=== PATIENT | female | born 1995 | race Caucasian/White ===

== ENCOUNTER 2017-01-19 06:23 | Inpatient (IN) | payer OTHER ==
[~2017-01-19] VITALS: Ht 165.1 cm; Wt 112.3 kg
[~2017-01-19 06:23] MED LIST: FERR325T51 PO; MTR600X PO; PRENTAB26 PO
[2017-01-20] MEDS ORDERED: OXYTOCIN 30 UNITS/500ML NSS IV ONE (08:32)
[2017-01-20] MEDS ORDERED: LACTATED RINGER'S 1000ML 1,000 ML IV PRN (08:34)
[2017-01-20] MEDS ORDERED: LACTATED RINGER'S 1000ML 1,000 ML IV SCH ×2 (08:34→09:18)
[2017-01-20] MEDS ORDERED: ERYTHROMYCIN OP OINT 1 GM PKT ONE (09:01)
[2017-01-20 09:03] LABS: HEMATOCRIT 30.7 % (37-47); MEAN CELL VOLUME 71.9 fL (80-100); MEAN CORPUSCULAR HEMOGLOBIN 21.1 pg (25-34); MEAN PLATELET VOLUME 9.9 fL (7.4-10.4); PLATELET COUNT 208 K/uL (130-400); RED BLOOD COUNT 4.27 M/uL (4.2-5.4); WHITE BLOOD COUNT 10.28 K/uL (4.8-10.8)
[2017-01-20 09:04] LABS: MEAN CORPUSCULAR HGB CONC 29.3 g/dl (32-36)
[2017-01-20] MEDS ORDERED: OXYTOCIN 30 UNITS/500ML NSS IV PRN (09:30)
[2017-01-20] MEDS ORDERED: DIPHTHERIA/TETANUS/PERTUSSIS 0.5 ML SYR/VIAL IM. ONE (09:30)
[2017-01-20] MEDS ORDERED: HYDROCORTISONE ACETATE 25 MG SUPP PR PRN (09:30)
[2017-01-20] MEDS ORDERED: OXYCODONE/ACETAMINOPHEN 5-325 TAB PO PRN (09:30)
[2017-01-20] MEDS ORDERED: ACETAMINOPHEN 325 MG TAB PO PRN (09:30)
[2017-01-20] MEDS ORDERED: LANOLIN OINT EXT PRN ×2 (09:30)
[2017-01-20] MEDS ORDERED: SUPERCREAM 0.870 % 15GM JAR EXT PRN (09:30)
[2017-01-20] MEDS ORDERED: BENZOCAINE 20% AER SPR 82.5 GM CAN EXT PRN (09:30)
[2017-01-20] MEDS ORDERED: MEASLES, MUMPS & RUBELLA VIRUS VIAL SQ. ONE (09:30)
[2017-01-20 11:04] VITALS: Ht 165.1 cm; Wt 112.3 kg
--- NOTE | 2017-01-20 11:04 | DELIVERY SUMMARY ---
DATE OF OPERATION: 01/20/2017 TIME OF DELIVERY OF BABY: 08:43 a.m. TIME OF DELIVERY OF PLACENTA: 09:07 a.m. DETAILS OF DELIVERY: The patient is a 21-year-old G2, P1-0-0-1, at 40 weeks and 1 day of gestation, who presented to labor and delivery in active labor. Her has been complicated by 1) History of preeclampsia on prior , no signs of preeclampsia during this 2) History of ADHD The patient denied any medical problems or surgeries. She denies any history of STDs including chlamydia, gonorrhea, or herpes and This is her second . She had delivered full-term spontaneous vaginal in July 2015 by myself. GBS culture was negative. Upon presenting to L&D her cervix was 8 cm dilated, 90% effaced and head at 0 station with tight bulging membranes. FHR was 150's. She was uncomfortable. She desired artificial rupture of membranes and to facilitate delivery. She declined epidural for pain. Artificial rupture of membranes was done and it was clear fluid. Then she quickly progressed and desired to push. She pushed with 2 contractions and delivered the head without difficulty. Shoulders were delivered with minimal traction. The infant was handed off to the mother, where mouth and nose were suctioned. Cord was clamped and cut at 1 minute and then cord blood was obtained. It was a 3-vessel cord. The vagina and perineum were checked for lacerations. There was second-degree perineal laceration at the posterior fourchette. It was confirmed with rectal exam. Excellent sphincter tone was noted. Gloves were changed. The laceration was repaired with 2-0 Vicryl in a running locked fashion bringing the perineal body muscles together and bulbocavernosus muscles together and skin in subcuticular fashion. The rectal exam was done and again, excellent sphincter tone was noted and no sutures palpated. The Gloves were changed. Placenta was found to be in the patient's vagina, delivered spontaneously as intact and complete. Uterus was explored and found to be empty. Lower segment was cleared off all clots and debris. EBL was 200. Mom and baby tolerated the procedure well. Baby was a viable male . Apgars 9/9. Weight is 4140 gr. No complications happened and I was present during the whole procedure. I attest to the content of the Intraoperative Record and any orders documented therein. Any exceptions are noted below. [facility]
[2017-01-20 11:55] VITALS: BP 131/78; PULSE 100; TEMP 37
[2017-01-20] MEDS: IBUPROFEN 600 MG TAB PO PRN (14:56)
[2017-01-20 16:07] VITALS: BP 138/80; PULSE 93; TEMP 36.8
[2017-01-20] MEDS: FERROUS SULFATE 325 MG TAB PO SCH (19:33)
[2017-01-20] MEDS: DOCUSATE SODIUM 100 MG CAP PO SCH (19:33)
[2017-01-20] MEDS: MAGNESIUM HYDROXIDE SUSP 30 ML UDC PO SCH (19:33)
[2017-01-20 20:00] VITALS: BP 136/79; PULSE 96; TEMP 36.8
[2017-01-20 23:25] VITALS: BP 131/70; PULSE 91; TEMP 37; O2SAT 97
[2017-01-21] MEDS: IBUPROFEN 600 MG TAB PO PRN ×2 (02:23→10:25)
[2017-01-21 03:25] VITALS: BP 129/66; PULSE 93; TEMP 36.8; O2SAT 97
[2017-01-21] MEDS: FERROUS SULFATE 325 MG TAB PO SCH (07:30)
[2017-01-21] MEDS: DOCUSATE SODIUM 100 MG CAP PO SCH (07:30)
[2017-01-21] MEDS ORDERED: MTR600X PO (07:57)
--- NOTE | 2017-01-21 07:59 | Discharge Instructions ---
Discharge Instructions Date of Service Jan 21, 2017. Admission Reason for Admission: LABOR Discharge Discharge Diagnosis / Problem: term delivered Discharge Goals Goal(s): Routine recovery after delivery Activity Recommendations Activity Limitations: as noted below Lifting Limitations: no more than 10 pounds Exercise/Sports Limitations: gradually increase as tolerated May Resume Sexual Activity: after follow-up appointment Shower/Bathe: no limitations Driving or Machine Use: resume 3 days after discharge . Instructions / Follow-Up Instructions / Follow-Up ACTIVITY RECOMMENDATIONS: * Gradual return to full activity over the next 2-3 weeks. * No lifting - nothing heavier than baby over the next 2-3 weeks. * Do not engage in vigorous exercise, sexual activity or sports until cleared by your physician. * Do not drive or operate any motorized equipment until cleared by your physician. * You may shower/bathe daily. BREAST CARE: If you are not breast feeding: * Wear a supportive bra 24 hours a day for one to two weeks. * Avoid stimulating your breasts and nipples as much as possible during the first few weeks after delivery. * When taking a shower, have the warm water hit your back, not breasts. * When your breasts feel full, apply ice packs. Usually three to four times a day helps ease the discomfort. * Take a mild pain medication (Tylenol/Motrin) when you are uncomfortable. If breast feeding: * Use breast milk to lubricate nipples. Lansinoh cream may be used for sore nipples. You do not need to remove cream prior to breast feeding. If using a different brand of cream, check the label for directions regarding removal of cream prior to nursing. * Wear a supportive bra. * If having problems with breasts or breast feeding, call a senior consumer insights consultant or your health care provider. EPISIOTOMY CARE: After delivery, if you have an episiotomy (stitches), the following steps will ease discomfort and aid healing. * For the first 24 hours after delivery, place ice packs next to your episiotomy to help reduce swelling. * After the first 24 hour-period, sitz baths, either portable or in the tub, are suggested. A shower with a shower arm sprayed over the episiotomy may be comforting. * Trudy care should be done after each voiding and bowel movement. Squirt warm water from a plastic bottle over the perineum (region of the body between the anus and urinary opening) and pat dry. * Use Dermoplast to ease discomfort. Shake container. Ensign directly over the episiotomy. * Place a Tucks on a clean sanitary pad next to your episiotomy. OVER THE COUNTER MEDICATION: * For discomfort or pain, you may use Acetaminophen (Tylenol), Ibuprofen (Advil ), or Naproxen (Aleve) following the package directions. * For constipation you may use Colace following the package directions. SPECIAL CARE INSTRUCTIONS: When you are discharged from the hospital, it is important for you to follow the instructions listed below: * During the first week at home, you should be able to care for yourself and your baby. In addition, the usual light household activities are encouraged. * Limit your activities to the way you feel. Do not try to clean the house or move furniture. Be sensible. * If you actively engage in sports and have done so up until the time of your delivery, you may resume these activities as soon as you feel able. This may take up to one month or even longer. Use good judgment. * Continue to take your vitamins for at least six weeks after the of your baby. * Your diet need not be limited unless you were on a special diet before your delivery. Breast-feeding mothers need around 2500 calories per day and at least 64-80 ounces of fluid per day (8 to 10 glasses). * You should eat foods from the four major food groups. Crash diets or fad diets are to be avoided. Eating lean meats, fresh fruits and vegetables, low-fat dairy products, high fiber foods and a regular exercise program, will help you get back to your pre- weight without putting your health at risk. * Constipation is sometimes a problem after delivery. Take a mild laxative as needed. If breast feeding, Milk of Magnesia is acceptable to use. You may use a suppository or Fleets enema if no episiotomy. * A daily shower or tub bath is suggested. Be sure to thoroughly and gently dry the perineum. * A bloody vaginal discharge will usually continue until around four weeks post . A small amount of bleeding may continue for as long as six weeks. Vaginal discharge changes from the bright red bleeding after delivery to pink then brownish and finally yellowish-pink before becoming white and disappearing. * Bleeding may increase with activity. Your first period may come in 4-8 weeks. If you are breast feeding, your period may be delayed even longer. * [place] (sex) can begin whenever both you and your partner feel comfortable and do not have any form of genital infection. It is recommended that you wait until after your return appointment and discuss with your physician. If you have questions, please talk to your health care practitioner. A condom should be used to prevent infection and . * Foreplay, gentle intercourse and lubrication is very important the first several times to prevent pain. A water-based lubricant such as K-Y jelly or Astroglide may be used. * Tampons may be used six weeks after delivery. * Douching should be avoided for 6 weeks after delivery. * If you have RH negative blood and your baby is RH positive, you will receive RHOGAM by injection prior to discharge. The nurse will give you a card to keep with you that has the date and place that you received RHOGAM after delivery. * During your care, you had a Rubella screen done to check for the presence of rubella antibodies in your blood. If your test was negative, you will receive a Rubella vaccine prior to discharge. This vaccine may cause a fever, soreness at the injection site and flu-like symptoms. If these symptoms persist, notify your health care practitioner. is not advised for three months after a Rubella vaccine. There is a higher chance of having a baby with defects if conceived within three months of getting the vaccine. * If you were discharged 24 hours from delivery or before 48 hours: Visiting nurses will come to your home 48 hours after discharge to assess you and your baby. The visiting nurse will meet with you while you are in the hospital to arrange a time and get directions to your home. * Verbalizes understanding of car seat law as reviewed with patient nursing. * Car Seat hand-out given and reviewed with patient by nursing. * Shaken baby information reviewed with patient by nursing. Call you doctor if: * Heavy bleeding (saturating several pads an hour) or passing clots the size of your fist. * A fever >101 degrees F (38.3 degrees C) on two occasions four hours apart and/or chills. * Unusual pain in the pelvic or vaginal areas. * "Baby Blues" lasting longer than two weeks. If you have any questions or concerns, call your health care practitioner at . FOLLOW-UP VISIT: * Please call the office at to schedule a 6 week examination. It is important you keep this appointment. * It is important for you to make arrangements for either yearly or twice yearly check-ups thereafter. Current Hospital Diet Patient's current hospital diet: Regular OB Diet Discharge Diet Recommended Diet: Regular OB Diet Fluid Restriction: None Pending Studies Studies pending at discharge: no Medical Emergencies . Who to Call and When: Medical Emergencies: If at any time you feel your situation is an emergency, please call 911 immediately. . Non-Emergent Contact Non-Emergency issues call your: Primary Care Provider . . "Provider Documentation" section prepared by Brian Roque. . VTE Core Measure Inpt VTE Proph given/why not?: Treatment not indicated
[2017-01-21] MEDS ORDERED: PRENATAL VITAMIN TAB PO SCH (08:00)
--- NOTE | 2017-01-21 08:01 | OB/GYN Progress Note ---
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 Subjective conversation w/ patient, physical exam Ambulation: ambulating normally Voiding: no voiding problems Passing Gas: Yes Diet Tolerance: Regular Diet Lochia: Small Feeding Type: Bottle Feeding Objective Vital Signs Date Time Temp Pulse Resp B/P (MAP) Pulse Ox O2 Delivery O2 Flow Rate FiO2 01/21/17 03:25 36.8 93 18 129/66 (87) 97 Room Air 01/20/17 23:25 97 Room Air 01/20/17 23:25 37.0 91 18 131/70 (90) 97 Room Air 01/20/17 20:00 36.8 96 18 136/79 (98) Room Air 01/20/17 16:07 36.8 93 18 138/80 (99) Room Air 01/20/17 16:07 Room Air 01/20/17 11:55 37.0 100 18 131/78 (95) Room Air 01/20/17 11:55 Room Air Physical Exam General Appearance: WELL-APPEARING, NO APPARENT DISTRESS Abdomen: non tender, soft Fundus: Firm Extremities: non-tender, normal inspection, no pedal edema Laboratory Results Last 24 Hours Test 01/20/17 08:56 01/21/17 07:23 White Blood Count 10.28 K/uL Red Blood Count 4.27 M/uL Hemoglobin 9.0 g/dL Hematocrit 30.7 % Mean Corpuscular Volume 71.9 fL Mean Corpuscular Hemoglobin 21.1 pg Mean Corpuscular Hemoglobin Concent 29.3 g/dl RDW Standard Deviation 41.0 fL RDW Coefficient of Variation 15.6 % Platelet Count 208 K/uL Mean Platelet Volume 9.9 fL Assessment and Plan Post- Day Number: 1 Continue Routine Care: discharged
[2017-01-21 08:02] VITALS: BP 132/76; PULSE 81; TEMP 36.5
[2017-01-21] MEDS: MAGNESIUM HYDROXIDE SUSP 30 ML UDC PO SCH (10:20)
[2017-01-21 14:08] VITALS: BP_DIAS 76; PULSE 81; TEMP 36.5
[2017-01-21] MEDS ORDERED: BISACODYL 5 MG TABEC PO SCH (20:00)
[2017-01-22] MEDS ORDERED: BISACODYL 10 MG SUPP PR PRN (07:00)
== END 2017-01-21 14:49 | disposition home or self-care (01) | DRG 775 ==
LOC: C.LD 01-20 08:28 → C.OBG 01-20 11:40
PROVIDERS: ADMIT Obstetrics & Gynecology; ATTEND Obstetrics & Gynecology
PROC: 10E0XZZ Delivery of Products of Conception, External Approach (ICD-10-PCS; principal; 2017-01-20)
PROC: 0KQM0ZZ Repair Perineum Muscle, Open Approach (ICD-10-PCS; principal; 2017-01-20)
DX: O70.1 Second degree perineal laceration during delivery (principal); O09.893 Supervision of other high risk pregnancies, third trimester; Z37.0 Single live birth; Z3A.40 40 weeks gestation of pregnancy

== ENCOUNTER 2022-06-04 20:21 | Inpatient (IN) ==
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
[2022-06-04 21:33] LABS: Basophils # (auto) 0.03 K/uL (0-0.2); Basophils % (auto) 0.4 %; Eosinophils # (auto) 0.06 K/uL (0-0.50); Eosinophils % (auto) 0.9 %; Hematocrit (blood only) 42.8 % (37.0-47.0); Hemoglobin 14.2 g/dl (12.0-16.0); Immature Granulocytes # (auto) 0.02 K/uL (0.01-0.20); Immature Granulocytes % (auto) 0.3 %; Lymphocytes # (auto) 1.46 K/uL (1.2-3.4); Lymphocytes % (auto) 21.7 %; Mean Corpuscular Hemoglobin 27.4 pg (25.0-34.0); Mean Corpuscular Hgb Conc 33.2 g/dL (32.0-36.0); Mean Corpuscular Volume 82.5 fL (80.0-100.0); Mean Platelet Volume 9.4 fL (9.4-12.4); Monocytes # (auto) 0.41 K/uL (0.11-0.59); Monocytes % (auto) 6.1 %; Neutrophils # (auto) 4.75 K/uL (1.40-6.50); Neutrophils % (auto) 70.6 %; Platelet Count 327 K/uL (130-400); RDW Coefficient of Variation 12.7 % (11.5-14.5); RDW Standard Deviation 37.9 fL (36.4-46.3); Red Blood Count 5.19 M/uL (4.20-5.40); White Blood Count 6.73 K/ul (4.8-10.8)
[2022-06-04 21:34] LABS: Pregnancy Test, Urine Negative (Negative)
[2022-06-04 21:39] LABS: Appearance Urine Turbid (Clear); Bacteria Urine Automated 2+ (Negative); Bilirubin Urine Negative (Negative); Blood Urine 2+ (Negative); Color Urine Yellow; Epithelial Cell Urine Auto >30 /lpf (0-5); Glucose Urine UA Negative (Negative); Ketones Urine Negative (Negative); Leukocyte Esterase Urine 2+ (Negative); Nitrite Urine Negative (Negative); Protein Urine Negative (Negative); Specific Gravity Urine 1.017 (1.000-1.030); Urobilinogen Urine Negative (Negative); WBC Urine Automated >30 /hpf (0-5); pH Urine 5.5 (4.5-7.5)
[2022-06-04 21:48] LABS: Albumin Globulin Ratio 1.5 (0.9-2); Albumin Level 4.6 gm/dl (3.4-5.0); BUN Creatinine Ratio 14.7 (10-20); Bilirubin,Total 0.3 mg/dl (0.2-1.0); Calcium 9.5 mg/dl (8.5-10.1); Creatinine Clr Calc Pharmacy 129.9 ml/min; Est GFR (African American) 126.6 ml/min; Est GFR (Non-African American) 109.2 ml/min; Globulin 3.1 gm/dl (2.5-4.0); Magnesium 2.1 mg/dl (1.7-2.4); Potassium 3.7 mmol/L (3.5-5.1); Total Protein 7.7 gm/dl (6.0-8.3)
[2022-06-04 21:57] LABS: RBC Urine Automated 0-4 /hpf (0-4)
[2022-06-04 21:58] LABS: Cast Urine Automated 0 /lpf (0-5)
[2022-06-04] MEDS ORDERED: cephALEXin 250 MG CAP PO ONE (22:10)
[2022-06-04] MEDS ORDERED: FLUCONAZOLE 50 MG TAB PO ONE (22:10)
[2022-06-04 22:23] LABS: Acetaminophen < 3 ug/ml (10-30); Salicylate < 3.0 mg/dl (3.0-30)
[2022-06-04 22:42] LABS: Amphetamines+Metham, Urine Neg (Neg); Barbiturates, Urine Neg (Neg); Benzodiazepine, Urine Pos (Neg); Cocaine, Urine Neg (Neg); MDMA (Ecstacy), Urine Neg (Neg); Methadone, Urine Neg (Neg); Opiate, Urine Neg (Neg); Phencyclidine, Urine Neg (Neg)
[2022-06-05] MEDS ORDERED: MAGNESIUM HYDROXIDE SUSP 30 ML UDC PO PRN (01:08)
[2022-06-05] MEDS ORDERED: ALUMINUM/MAGNESIUM SUSP 30 ML UDC PO PRN (01:08)
[2022-06-05] MEDS ORDERED: BISMUTH SUBSALICYLATE LIQD 236 ML PO PRN (01:08)
[2022-06-05] MEDS ORDERED: hydrOXYzine HCl 25 MG TAB PO PRN ×2 (01:08)
[2022-06-05] MEDS ORDERED: SODIUM CHLORIDE 0.65% NA SOLN 45 ML (OCEAN) PRN (01:08)
[2022-06-05] MEDS ORDERED: ACETAMINOPHEN 325 MG TAB PO PRN (01:08)
--- NOTE | 2022-06-05 15:04 | History & Physical ---
Date of Service June 05, 2022 Impression / Recommendations Impression 26 y/o F with benzodiazepine and methamphetamine dependence whose life has been coming apart. She is reported to have a long psychiatric history of "emotional dysregulation" with adolescent admissions but no adult treatment. She has voiced strong opposition to psychiatric treatment, but has been using methamphetamine and a benzodiazepine (that may be alprazolam) purchased online from [place]. She probably has a mood disorder such as bipolar disorder or a personality disorder such as borderline personality disorder, but in the context of her current substance-induced state and in the absence of records this is impossible to determine. She appears to exhibit signs of benzodiazepine intoxication, stimulant discontinuation, or both. (1) Sedative, hypnotic or anxiolytic dependence with sedative, hypnotic or anxiolytic-induced mood disorder: (2) Other stimulant dependence with stimulant-induced mood disorder: (3) Benzodiazepine overdose: Encounter type: initial encounter Injury intent: intentional self-harm Qualified Code(s): T42.4X2A - Poisoning by benzodiazepines, intenti onal self-harm, initial encounter Plan 06/05/2022: * The patient was admitted to the [facility]) on q15 min checks (behavioral with suicide precautions) for safety. The patient will participate in group, recreational, and milieu therapies and will be offered additional individual and family sessions as clinically appropriate. * Will monitor closely for signs of potential sedative-hypnotic withdrawal. * In the absence of any signs of sedative-hypnotic withdrawal, will avoid use of benzodiazepines. * Since behavior in the ED and history from father suggest that aggressive or disorganized behavior arising from emotional dysregulation may become a problem, will order olanzapine 5 mg ODT or 5 mg IM Q6 Hr PRN ap or psychosi s Suicide Risk Level Suicide Risk Level: High-Moderate (q15 min suicide checks) Suicide Risk Level Comments: During admission threatened to kill herself if admitted Risk Factors Assessment : Yes Do You Have Access To A Gun?: No Mental Health Diagnoses: Yes Substance Use Disorders: Yes Previous Attempt: Yes Previous Psychiatric Hospitalization: Yes Protective Factors Assessment Employed: No Psychiatric History Identifying Data KAILYN FREEMAN is a 26-year-old F who currently lives in an apartment from which she's being eviceted, has a history of "emotional dysregulation", and was admitted on 06/05/22 00:30 on a 302 involuntary commitment for suicidal behavior and threats. Chief Complaint "Glrghmph". History of Present Illness As part of a thorough review of the available medical records, I have read and confirmed the following note by the ED psychiatric case monitor: "Patient arrives on a Box A petition by : "I went to wake Kailyn yesterday morning - she appeared under the influence. Was staggering and acting abnormal. We are facing eviction in 3 days, she made comments of being a disappointment to her parents. Another roommate observed her taking a knife to her bathroom. I left for work and checked on her when I returned last night, she would not respond to me verbally. She sent me and other roommates "I love you" messages (last night). She left the apartment to avoid medical attention. She made statements to me that she wished she had a gun to use against herself. I witnessed her ingest 7 Xanax pills today and tried to stop her. She admitted to taking a total of 30 Xanax pills between yesterday and today." "Kailyn admits to ingesting 22-30 Xanax pills she bought online from a man overseas in [place]. She states these are illegal pills and are 3.5mg each. She relays a history of anxiety and depression her whole life and does not receive treatment for it. She believes that healthcare workers are paid to impose medications on people and refuses any and all medication. In regards to therapy, she states, "fuck therapy". She also states, "I don't want t reatment, I will avoid it at all costs. Hopefully my liver is fucked up so I can just ". Kailyn admits to suicidal thoughts at current. She states that she will kill herself if she is transferred to an inpatient psychiatric facility by finding anything she can to slit her wrists. Kailyn states she was in foster care from age [age] when she was adopted. She states her adoptive parents didn't know what they were getting into and she was placed several times at inpatient hospitals as a child. She denies any inpatient history past age 15. Roommate/petitioner provides additional info that Kailyn recently lost custody of her two children." "Received call from Kailyn's adoptive father, Tony ([phone]). Tony understood that I could not confirm or deny that patient is here or offer any information in regards to her stay here thus far. Tony states that Kailyn's roommate reached out to him and he just wanted to provide some background information. He states that Kailyn had always been a strong willed child from the time they adopted her at age 4, but her emotional dysregulation worsened at puberty. She had inpatient stays at [facility] as an adolescent following two episodes of SIB. Tony shares that Kailyn sent him and his Reyna a lengthy text message last night blaming them for not parenting her correctly and telling them not to come to her . Tony and his were not concerned as they receive messages like this from Kailyn periodically." "Kaiyln has no service providers and is dealing with several stressors in her life right now. She is facing eviction in three days. She lost custody of her two young sons a few months ago and hasn't seen them in approximately 1.5 months. She has prior inpatient psychiatric treatment as an adolescent but no treatment as an adult. She has past history of self injurious behavior by cutting. Unclear when last cutting incident was. She messaged several people by text message last night saying her goodbyes, including telling her adoptive parents not to attend her . Kailyn is very resistant to mental health service providers and has experienced a lot of trauma being in the system as a child." Her urine toxicology screen was positive for benzodiazepine metabolites but more detailed testing for metabolites of specific benzodiazepines marketed in the [place] is pending. As far as I can determine, alprazolam is not legally available in a 3.5 mg size anywhere. Since we don't have access to any of the tablets pt took, identifying the drug may never be possible. My experience with patients ordering benzodiazepines over the internet leads me to believe that in most cases these are novel benzodiazepines mislabeled as "Xanax" or "Kalma". The most common I've seen have been triazolobenzodiazepines (a group with includes alprazolam) because these are often favored by addicts over other types. Commonly- encountered "freelance designer" triazolobenzodiazepines include bromazolam, clonazolam, flualprazolam, and flubromazolam. These are highly-potent and have not been studied in much depth, but all bind to type-A HOPE receptors. They have unpredictable and often very severe withdrawal syndromes. On approach today, pt is lying prone on her bed, her face against the mattress. She does not respond to numerous attempts to wake her up but eventually flutters her eyelids open. She attempts to sit up but falls over twice then returns to her prone position. During this, she vocalized but did not form any words that I could detect. Past Psychiatric History Previous Psych History: "emotional dysregulation" as an adolescent Current Psychiatric Diagnosis: depression with SI Previous Psych Admissions: 2 as adolescent Do You Have Access To A Gun?: No History of Previous Suicide Attempt: Yes Allergies Allergy/AdvReac Type Severity Reaction Status Date / Time No Known Allergies Verified 02/17/21 06:23 Home Medications Medication Instructions Recorded Confirmed Type No Known Home Medications 06/04/22 06/04/22 History Family History Family History of: Doesn't Know Family Mental Health History Comment: adopted at an early age Alcohol History Hx of Alcohol Use Over the Past 12 Months: Yes (socially) AUDIT Total Score: 1 Smoking Use Have You Smoked or Used Tobacco Products in the Last 30 Days: No Smoking Status: Never smoker Substance History Hx of Prescription Med Misuse Over the Past 12 Months: Yes (Xanax purchased over the internet) Hx of Over the Counter Med Misuse Over the Past 12 Months: No Hx of Inhalent Misuse Over the Past 12 Months: No Hx of Organic Substance Use Over the Past 12 Months: Yes (marijuana) Hx of Illegal Substances/Street Drug Use Over Past 12 Months: Yes (obtained Xanax illegally and overdosed) Problems as a Result of Past Substance Use: Life out of Control and Estranged from Family Personal History Living Arrangements: Apartment Living Arrangements Comments: currently facing eviction Number Of Children: 2 Beliefs That Will Affect Care: None Patient History Medical History History of depression History of pre-eclampsia Surgical History H/O bilateral salpingectomy 2020 [place] teeth removed Family History Mother Depression Anxiety Drinking problem Thyroid disease Other Adopted Social History Smoking Status: Never smoker Second Hand Exposure: Yes; Hx Alcohol Use: Yes Alcohol type: wine and hard liquor Hx Substance Use: Yes Non-Prescribed Medications Comment: Lewisx Preferred Language: Tajik Communication Ability: Effective Cupola Operator Required: No Beliefs That Will Affect Care: None Current Living Situation: Family Feels Safe at Home: Yes Gender Identity: Female Assistive Devices: Contacts and Glasses Review of Systems Review of Systems: Unobtainable due to reduced consciousness Physical Exam Psychiatric: Extremely sleepy, nearly unarousable Apperance: + disheveled; + inappropriately groomed none for the most part nonresponsive nearly mute; unintelligible Affect: + flat affect cannot be determined due to unresponsiveness Thought Process: + incoherent thought process cannot be determined due to unresponsiveness recent overdose and repeated suicidal threats prior to admission cannot be determined due to unresponsiveness cannot be determined due to unresponsiveness cannot be determined due to unresponsiveness cannot be determined due to unresponsiveness cannot be determined due to unresponsiveness based on recent behavior, appears to be highly impaired Vital Signs (Past 24 Hours): Last Vital Signs Temp 36.6 C 06/05/22 06:39 Pulse 106 H 06/05/22 06:45 Resp 18 06/05/22 06:39 BP 125/84 06/05/22 06:45 Pulse Ox 98 06/04/22 23:47 O2 Del Method Room Air 06/04/22 23:47 Exam Statement: A physical exam was performed in the ED by ED physician for the purposes of medical clearance. I accept that physical as correct and adequate for the purposes of the inpatient physical exam. Results & Data ([facility]) Laboratory Results Laboratory Results - last 24 hr 06/04/22 06/04/22 06/04/22 20:27 20:27 20:27 WBC RBC Hgb Hct MCV MCH MCHC RDW Std Deviation RDW Coeff of Sherrie Plt Count MPV Immature Gran % (Auto) Neut % (Auto) Lymph % (Auto) [place] % (Auto) Eos % (Auto) Baso % (Auto) Neut # (Auto) Lymph # (Auto) [place] # (Auto) Eos # (Auto) Baso # (Auto) Immature Gran # (Auto) Sodium Potassium Chloride Carbon Dioxide Anion Gap BUN Creatinine Est Cr Clr Drug Dosing Est GFR ( Amer) Est GFR (Non-Af Amer) BUN/Creatinine Ratio Glucose Calcium Magnesium Total Bilirubin AST ALT Alkaline Phosphatase Total Protein Albumin Globulin Albumin/Globulin Ratio Urine Color Yellow Urine Appearance Turbid A Urine pH 5.5 Ur Specific [place] 1.017 Urine Protein Negative Urine Glucose (UA) Negative Urine Ketones Negative Urine Blood 2+ H Urine Nitrite Negative Urine Bilirubin Negative Urine Urobilinogen Negative Ur Leukocyte Esterase 2+ H Urine WBC (Auto) >30 H Urine RBC (Auto) 0-4 U Hyaline Cast (Auto) 0 U Epithel Cells (Auto) >30 H Urine Bacteria (Auto) 2+ H Urine Yeast Budding A Urine Test Negative Salicylates Urine Opiates Screen Neg Ur Methadone, Qual Neg Acetaminophen Urine Barbiturates Neg Ur Phencyclidine (PCP) Neg U Amphetamin/Meth Scrn Neg MDMA (Ecstasy) Screen Neg U OH-Alprazolam Confrm U Benzodiazepines Scrn Pos H 7-Amino Clonazepam Ur Nordiazepam Confirm U OH-ethylflurazepam U Lorazepam Cnf GC/MS U Oxazepam Confm GC/MS Ur Temazepam Confirm U OH-Triazolam Confirm U OH-Midazolam Confirm Ur Cocaine Metabolite Neg U Marijuana (THC) Screen Neg Drug Screen Comment Ethyl Alcohol mg/dL SARS-CoV-2, RNA, NAAT 06/04/22 06/04/22 06/04/22 20:27 20:47 20:47 WBC 6.73 RBC 5.19 Hgb 14.2 Hct 42.8 MCV 82.5 MCH 27.4 MCHC 33.2 RDW Std Deviation 37.9 RDW Coeff of Sherrie 12.7 Plt Count 327 MPV 9.4 Immature Gran % (Auto) 0.3 Neut % (Auto) 70.6 Lymph % (Auto) 21.7 [place] % (Auto) 6.1 Eos % (Auto) 0.9 Baso % (Auto) 0.4 Neut # (Auto) 4.75 Lymph # (Auto) 1.46 [place] # (Auto) 0.41 Eos # (Auto) 0.06 Baso # (Auto) 0.03 Immature Gran # (Auto) 0.02 Sodium 141 Potassium 3.7 Chloride 108 H Carbon Dioxide 28 Anion Gap 5 BUN 11 Creatinine 0.75 Est Cr Clr Drug Dosing 129.9 Est GFR ( Amer) 126.6 Est GFR (Non-Af Amer) 109.2 BUN/Creatinine Ratio 14.7 Glucose 107 H Calcium 9.5 Magnesium 2.1 Total Bilirubin 0.3 AST 8 L ALT 8 Alkaline Phosphatase 74 Total Protein 7.7 Albumin 4.6 Globulin 3.1 Albumin/Globulin Ratio 1.5 Urine Color Urine Appearance Urine pH Ur Specific [place] Urine Protein Urine Glucose (UA) Urine Ketones Urine Blood Urine Nitrite Urine Bilirubin Urine Urobilinogen Ur Leukocyte Esterase Urine WBC (Auto) Urine RBC (Auto) U Hyaline Cast (Auto) U Epithel Cells (Auto) Urine Bacteria (Auto) Urine Yeast Urine Test Salicylates Urine Opiates Screen Ur Methadone, Qual Acetaminophen Urine Barbiturates Ur Phencyclidine (PCP) U Amphetamin/Meth Scrn MDMA (Ecstasy) Screen U OH-Alprazolam Confrm Pending U Benzodiazepines Scrn 7-Amino Clonazepam Pending Ur Nordiazepam Confirm Pending U OH-ethylflurazepam Pending U Lorazepam Cnf GC/MS Pending U Oxazepam Confm GC/MS Pending Ur Temazepam Confirm Pending U OH-Triazolam Confirm Pending U OH-Midazolam Confirm Pending Ur Cocaine Metabolite U Marijuana (THC) Screen Drug Screen Comment Pending Ethyl Alcohol mg/dL SARS-CoV-2, RNA, NAAT 06/04/22 06/04/22 06/04/22 20:47 20:47 20:47 WBC RBC Hgb Hct MCV MCH MCHC RDW Std Deviation RDW Coeff of Sherrie Plt Count MPV Immature Gran % (Auto) Neut % (Auto) Lymph % (Auto) [place] % (Auto) Eos % (Auto) Baso % (Auto) Neut # (Auto) Lymph # (Auto) [place] # (Auto) Eos # (Auto) Baso # (Auto) Immature Gran # (Auto) Sodium Potassium Chloride Carbon Dioxide Anion Gap BUN Creatinine Est Cr Clr Drug Dosing Est GFR ( Amer) Est GFR (Non-Af Amer) BUN/Creatinine Ratio Glucose Calcium Magnesium Total Bilirubin AST ALT Alkaline Phosphatase Total Protein Albumin Globulin Albumin/Globulin Ratio Urine Color Urine Appearance Urine pH Ur Specific [place] Urine Protein Urine Glucose (UA) Urine Ketones Urine Blood Urine Nitrite Urine Bilirubin Urine Urobilinogen Ur Leukocyte Esterase Urine WBC (Auto) Urine RBC (Auto) U Hyaline Cast (Auto) U Epithel Cells (Auto) Urine Bacteria (Auto) Urine Yeast Urine Test Salicylates < 3.0 L Urine Opiates Screen Ur Methadone, Qual Acetaminophen < 3 L Urine Barbiturates Ur Phencyclidine (PCP) U Amphetamin/Meth Scrn MDMA (Ecstasy) Screen U OH-Alprazolam Confrm U Benzodiazepines Scrn 7-Amino Clonazepam Ur Nordiazepam Confirm U OH-ethylflurazepam U Lorazepam Cnf GC/MS U Oxazepam Confm GC/MS Ur Temazepam Confirm U OH-Triazolam Confirm U OH-Midazolam Confirm Ur Cocaine Metabolite U Marijuana (THC) Screen Drug Screen Comment Ethyl Alcohol mg/dL < 10.0 SARS-CoV-2, RNA, NAAT NEGATIVE Current Inpatient Medications Current Inpatient Medications: Current Inpatient Medications Acetaminophen (Acetaminophen 325 Mg Tab) 650 mg PO Q4H PRN PRN Reason: Headache or Minor Fever Stop: 07/05/22 01:07 Al Hydrox/Mg Hydrox/Simethicone (Aluminum/Magnesium Susp 30 Ml Udc) 30 ml PO Q4H PRN PRN Reason: GI Upset Stop: 07/05/22 01:07 Bismuth Subsalicylate (Bismuth Subsalicylate Liqd 236 Ml) 15 ml PO PRN PRN PRN Reason: Loose Stool Stop: 07/05/22 01:07 Hydroxyzine HCl (Hydroxyzine Hcl 25 Mg Tab) 25 mg PO Q4H PRN PRN Reason: Anxiety Stop: 07/05/22 01:07 Hydroxyzine HCl (Hydroxyzine Hcl 25 Mg Tab) 50 mg PO HSZ PRN PRN Reason: Insomnia Stop: 07/05/22 01:07 Magnesium Hydroxide (Magnesium Hydroxide Susp 30 Ml Udc) 30 ml PO DAILY PRN PRN Reason: Constipation Stop: 07/05/22 01:07 Sodium Chloride (Sodium Chloride 0.65% Na Soln 45 Ml ([place])) 1 - 2 sprays NA PRN PRN PRN Reason: Nasal Dryness/Congestion Stop: 07/05/22 01:07
[2022-06-05] MEDS ORDERED: OLANZapine 10 MG/2.1 ML SDV IM PRN (15:49)
[2022-06-05] MEDS ORDERED: Ativan PO Alcohol Withdrawal--Active Protocol PO PRN (20:03)
[2022-06-05] MEDS ORDERED: LORazepam 1 MG TAB PO PRN ×3 (20:03)
--- NOTE | 2022-06-06 01:53 | Electrocardiogram Report ---
Test Reason : Blood Pressure : / mmHG Vent. Rate : 086 BPM Atrial Rate : 086 BPM P-R Int : 130 ms QRS Dur : 072 ms QT Int : 340 ms P-R-T Axes : 103 -26 -25 degrees QTc Int : 406 ms Normal sinus rhythm with sinus arrhythmia Normal ECG No previous ECGs available Confirmed by Sha Amador ([id number]) on 06/06/2022 1:53:27 AM Referred By: REFERRED SELF Confirmed By:Sha Amador
--- NOTE | 2022-06-06 12:06 | Psychiatric Progress Note ---
Date of Service June 06, 2022 Impression / Recommendations Impression 26 y/o F with benzodiazepine and methamphetamine use admitted on 302 commitment after reported overdose of suspected alprazolam vs other benzodiazepine and texting friends suicide notes. Diagnostically consistent with unspecified mood disorder with differential including substance-induced vs bipolar disorder or a personality disorder such as borderline personality disorder as well as polysubstance use disorder. Currently remains in need of inpatient psychiatric hospitalization for safety and stabilization, 302 commitment expires on 06/09/2022. MNPR due to agitation while in the ED and ongoing periods of agitation and emotional lability 06/06/2022: Continues to present with excessive sedation and likely some confusion consistent with suspected delirium from benzodiazepine ingestion as well as stimulant withdrawal. Unclear if she had been using benzodiazepines prior to ingestion as part of suicide attempt nor what her typical alcohol use is. Given this placed on AWSS to monitor for signs of withdrawal, so far not scoring. Will avoid gabapentin loading for now given risks for respiratory depression with recent benzodiazepine ingestion. Thought process remains somewhat loosened and even though she desires discharge rather than denying attempt speaks to additional ways that she continues to pose high risk of self- harm and other concerning decisions related to her personal safety. Will avoid any additional medications for now. Ongoing effort for motivational interviewing as she is better able to tolerate this. (1) Unspecified mood [affective] disorder: (2) Sedative, hypnotic or anxiolytic dependence with sedative, hypnotic or anxiolytic-induced mood disorder: (3) Other stimulant dependence with stimulant-induced mood disorder: (4) Benzodiazepine overdose: Plan 06/06/2022: On AWSS, continue to monitor for signs of withdrawal. Remains on safe tray due to previous statements about plans to attempt self-harm. 06/05/2022: * The patient was admitted to the [facility] ([facility]) on q15 min checks (behavioral with suicide precautions) for safety. The patient will participate in group, recreational, and milieu therapies and will be offered additional individual and family sessions as clinically appropriate. * Will monitor closely for signs of potential sedative-hypnotic withdrawal. * In the absence of any signs of sedative-hypnotic withdrawal, will avoid use of benzodiazepines. * Since behavior in the ED and history from father suggest that aggressive or disorganized behavior arising from emotional dysregulation may become a problem, will order olanzapine 5 mg ODT or 5 mg IM Q6 Hr PRN ap or psychosis Suicide Risk Level Suicide Risk Level: High-Moderate (q15 min suicide checks) (suicide attempt prior to admission and in ED statements of plan to self-harm if admitted, so far no attempts at self-harm and denies SI this morning and agrees to let nursing know if she needs more support or develops SI ) Risk Factors Assessment : Yes Do You Have Access To A Gun?: No Mental Health Diagnoses: Yes Substance Use Disorders: Yes Previous Attempt: Yes Previous Psychiatric Hospitalization: Yes Protective Factors Assessment Employed: No Interval History Identifying Information KAILYN FREEMAN is a 26-year-old F who currently lives in an apartment from which she's being evicted, has a history of "emotional dysregulation" and suspected polysubstance use, and was admitted on 06/05/22 00:30 on a 302 involuntary commitment for suicidal behavior and threats. Chief Complaint "If I wanted to do that I would use a gun, I know lots of felons with guns". Review of Systems Sleep Information Total Hours of Sleep: 6.5 Sleep Comments: Meal Information Percent Meal Consumed - Breakfast: 0 Percent Meal Consumed - Lunch: 0 Percent Meal Consumed - Dinner: 0 Nutrition Comment: Kailyn refused to eat stating she wasn't going to eat anything. Subjective Subjective Patient was seen & assessed and interval progress reviewed with treatment team nursing and social work. Sleeping most of the day but at times up and moving around but seemed unsteady on her feet and possibly confused. Last night agitated and asking to leave. This morning sleeping and declined breakfast. Woke easily to verbal prompts. Did not seem to remember that she was hospitalized on 302 commitment, reviewed this with her and reasons for it-concern for suicide attempt due to texts she sent and large ingestion of suspected benzodiazepine. She tells me "you can't overdose on benzos, the stuff I took is home pressed and pure from [place]" and emphasizes that her dealer "he told me I couldn't overdose on it". She could not deny SI today rather said "it's too early to tell" and then told me if she wanted to by suicide she would do so by getting a gun as she knows "multiple people" with guns. Discussed her history of selling drugs when she lived in "[facility]" and history of making money via only fans and needing to text "my sugar daddy" to get funds to prevent her eviction. Tearful in discussing her eviction but adamantly refusing to allow me to involve social work to help with navigating this and looking into other supports or options telling me "I grew up in the social work system, all social workers are useless and I will not talk to them". Tells me her only other substance use recently has been "pure amphetamine" and describes that this causes her to have elevated BP and panic attacks "it feels like your brain is going to pop". Could not clarify what or how often she uses benzos nor any other substance use like alcohol. Stated she feels abandoned by her parents and was very tearful and inconsolable when discussing this and her need to leave the hospital. Physical Exam Psychiatric Orientation: alert, oriented to person, oriented to place and oriented to time Apperance: + disheveled Eye Contact: + fair eye contact Motor Behavior: no abnormal motor movements Speech: normal rate/rhythm/volume of speech Affect: + tearful affect, + labile affect and + irritable affect Mood: + depressed mood, + anxious mood, + irritable mood and + angry mood Thought Process: + tangential thought process, + looseness of associations and + perseveration Thought Content: reality based without delusions Suicidal Thoughts: denies suicidal thoughts (but unable to fully speak to this stating "it's too early to know") Homicidal Thoughts: denies homicidal thoughts Hallucinations: no auditory hallucinations and no visual hallucinations Cognition: recent memory grossly intact and remote memory grossly intact Insight: + limited insight Judgment: + limited judgement Vital Signs (Past 24 Hours) Last Vital Signs Temp 36.9 C 06/06/22 11:21 Pulse 96 H 06/06/22 11:21 Resp 18 06/06/22 11:21 BP 105/74 06/06/22 11:21 Pulse Ox 98 06/06/22 11:21 O2 Del Method Room Air 06/06/22 11:21 Results & Data ([facility]) Current Inpatient Medications Current Inpatient Medications: Current Inpatient Medications Acetaminophen (Acetaminophen 325 Mg Tab) 650 mg PO Q4H PRN PRN Reason: Headache or Minor Fever Stop: 07/05/22 01:07 Al Hydrox/Mg Hydrox/Simethicone (Aluminum/Magnesium Susp 30 Ml Udc) 30 ml PO Q4H PRN PRN Reason: GI Upset Stop: 07/05/22 01:07 Bismuth Subsalicylate (Bismuth Subsalicylate Liqd 236 Ml) 15 ml PO PRN PRN PRN Reason: Loose Stool Stop: 07/05/22 01:07 Hydroxyzine HCl (Hydroxyzine Hcl 25 Mg Tab) 25 mg PO Q4H PRN PRN Reason: Anxiety Stop: 07/05/22 01:07 Hydroxyzine HCl (Hydroxyzine Hcl 25 Mg Tab) 50 mg PO HSZ PRN PRN Reason: Insomnia Stop: 07/05/22 01:07 Lorazepam (Lorazepam 1 Mg Tab) 2 mg PO UD PRN; Protocol PRN Reason: EtOH Withdrawal AWSS Score 8,9 Stop: 07/05/22 20:02 Lorazepam (Lorazepam 1 Mg Tab) 3 mg PO ONCE PRN; Protocol PRN Reason: EtOH Withdrawal AWSS Score 10 & above Lorazepam (Lorazepam 1 Mg Tab) 1 mg PO UD PRN; Protocol PRN Reason: EtOH Withdrawal AWSS Score 6,7 Stop: 07/05/22 20:02 Magnesium Hydroxide (Magnesium Hydroxide Susp 30 Ml Udc) 30 ml PO DAILY PRN PRN Reason: Constipation Stop: 07/05/22 01:07 Olanzapine (Olanzapine Zydis 5 Mg Orally Dis. Tab) 5 mg PO Q6 PRN PRN Reason: ap or psychosis Stop: 07/05/22 17:59 Olanzapine (Olanzapine 10 Mg/2.1 Ml Sdv) 5 mg IM Q6 PRN PRN Reason: psychosis or ap, if oral form cannot be administered Stop: 07/05/22 17:59 Sodium Chloride (Sodium Chloride 0.65% Na Soln 45 Ml ([place])) 1 - 2 sprays NA PRN PRN PRN Reason: Nasal Dryness/Congestion Stop: 07/05/22 01:07 Mental Health & Subst Abuse Tx Therapist Name of Therapist: N/A Lead Web Application Developer Name of Lead Web Application Developer: N/A Post Discharge Appointments Primary Care Physician Name Of Family Doctor/PCP: N/A (4) Benzodiazepine overdose Encounter type: initial encounter Injury intent: intentional self-harm Qualified Code(s): T42.4X2A - Poisoning by benzodiazepines, intentional self- harm, initial encounter
[2022-06-07] MEDS: OLANZapine ZYDIS 5 MG ORALLY DIS. TAB PO PRN ×2 (01:54→23:21)
[2022-06-07 10:42] LABS: 7-Aminoclonaz, Confirm NEGATIVE ng/mL (<25); Hydro-Alp Ur, GC/MS NEGATIVE ng/mL (<25); Hydroxyethylflurazepam, Conf NEGATIVE ng/mL (<50); Hydroxymidazolam Ur, GC/MS NEGATIVE ng/mL (<50); Hydroxytriazolam NEGATIVE ng/mL (<50); Lorazepam, Ur GC/MS NEGATIVE ng/mL (<50); Nordiazepam, Confirm NEGATIVE ng/mL (<50); Oxazepam Ur, GC/MS NEGATIVE ng/mL (<50); Temazepam, Confirm NEGATIVE ng/mL (<50)
--- NOTE | 2022-06-07 15:38 | Psychiatric Progress Note ---
Date of Service June 07, 2022 Impression / Recommendations Impression 26 y/o F with benzodiazepine and methamphetamine use admitted on 302 commitment after reported overdose of suspected alprazolam vs other benzodiazepine and texting friends suicide notes. Diagnostically consistent with unspecified mood disorder with differential including substance-induced vs bipolar disorder or a personality disorder such as borderline personality disorder as well as polysubstance use disorder. Currently remains in need of inpatient psychiatric hospitalization for safety and stabilization, 302 commitment expires on 06/09/2022. MNPR due to agitation while in the ED and ongoing periods of agitation and emotional lability 06/07/2022: Mental status slightly clearer today. At times almost grandiose though no other signs of ap but possible large benzo ingestion masking some of these symptoms. She has no insight into impact of substance use and gives varying reports of why she took the benzo overdose even during the course of a 45 minute conversation with me. Not scoring at all on AWSS. Possible that zyprexa helpful for improving mental clarity and thought organization. Given unsteady gait due to benzo ingestion will try risperidone instead for mood stabilization versus substance-induced effects given slightly less likely to cause hypotension compared with zyprexa. Discussed medication treatment options in detail. Discussed risks, benefits and alternatives. Patient would like to start and consented to risperidone for mood stabilization. Reviewed side effects including but not limited to: movement (TD, NMS), cardiac (QTc prolongation), and metabolic (stroke, insulin resistance) and necessity for fasting lipid and glucose labwork and AIMS done with score of 0. (1) Unspecified mood [affective] disorder: (2) Sedative, hypnotic or anxiolytic dependence with sedative, hypnotic or anxiolytic-induced mood disorder: (3) Other stimulant dependence with stimulant-induced mood disorder: (4) Benzodiazepine overdose: Plan 06/07/2022: Risperidone 0.5mg HS. Fasting lipid panel and glucose tomorrow AM. 06/06/2022: On AWSS, continue to monitor for signs of withdrawal. Remains on safe tray due to previous statements about plans to attempt self-harm. 06/05/2022: * The patient was admitted to the [facility] ([facility] mental health unit) on q15 min checks (behavioral with suicide precautions) for safety. The pat ient will participate in group, recreational, and milieu therapies and will be offered additional individual and family sessions as clinically appropriate. * Will monitor closely for signs of potential sedative-hypnotic withdrawal. * In the absence of any signs of sedative-hypnotic withdrawal, will avoid use of benzodiazepines. * Since behavior in the ED and history from father suggest that aggressive or disorganized behavior arising from emotional dysregulation may become a problem, will order olanzapine 5 mg ODT or 5 mg IM Q6 Hr PRN ap or psychosis Suicide Risk Level Suicide Risk Level: High-Moderate (q15 min suicide checks) (suicide attempt prior to admission and in ED statements of plan to self-harm if admitted, so far no attempts at self-harm and denies SI and agrees to let nursing know if she needs more support or develops SI ) Risk Factors Assessment : Yes Do You Have Access To A Gun?: No Mental Health Diagnoses: Yes Substance Use Disorders: Yes Previous Attempt: Yes Previous Psychiatric Hospitalization: Yes Protective Factors Assessment Employed: No Interval History Identifying Information JUANJO FREEMAN is a 26-year-old F who currently lives in an apartment from which she's being evicted, has a history of "emotional dysregulation" and suspected polysubstance use, and was admitted on 06/05/22 00:30 on a 302 involuntary commitment for suicidal behavior and threats. Chief Complaint "I don't get addicted, I'm gifted like that". Review of Systems Sleep Information Total Hours of Sleep: 4.5 Meal Information Percent Meal Consumed - Breakfast: 50 Percent Meal Consumed - Lunch: 0 Percent Meal Consumed - Dinner: 0 Nutrition Comment: Subjective Subjective Patient was seen & assessed and interval progress reviewed with treatment team nursing and social work. Largely isolative to her room and sleeping a lot. Had some trouble sleeping last night and mood was more elevated and grandiose so requested and received dose of zyprexa and then slept about 4.5 hours but napping throughout the day. Quite grandiose last night talking about having many acquaintances, knowing people in the [place] [employer]. Today mentally more clear but still with some unsteadiness on her feet. She is not interested in any type of resources for her mental health or substance use. Tells me she has never had an issue with addiction and has always been able to stop substances whenever she wants without any withdrawal or craving. Does like to help others with addiction issues though telling me "Addicts are my passion". Denies SI today and states her mood is good and that it is "always good, if you saw me outside of here you'd see how happy I am" though later tells me she wouldn't be "on this planet if it weren't for my dog". Tells me "I'm only suicidal when I'm coming off benzos" when we discuss starting to work on her safety plan though later tells me she only took the benzos "to keep my roommates from taking them because they were becoming addicted to them, I probably should have just thrown them away but my brain doesn't work like that, see I was doing it to help them". Plans to live in her car after discharge as she is being evicted. Continues to decline help or support from social work. Ate breakfast but declines lunch stating "I'm trying to lose weight so I only eat one meal per day". Physical Exam Psychiatric Orientation: alert, oriented to person, oriented to place and oriented to time Apperance: + disheveled Eye Contact: good eye contact Motor Behavior: no abnormal motor movements; + unsteady gait or station Speech: normal rate/rhythm/volume of speech Affect: + constricted affect Mood: + depressed mood; no anxious mood Thought Process: + circumstantial thought process and + looseness of associations Thought Content: + delusions (some possible grandiosity) Suicidal Thoughts: denies suicidal thoughts Homicidal Thoughts: denies homicidal thoughts Hallucinations: no auditory hallucinations and no visual hallucinations Cognition: recent memory grossly intact and remote memory grossly intact Insight: + limited insight Judgment: + limited judgement Vital Signs (Past 24 Hours) Last Vital Signs Temp 37.3 C 06/07/22 14:01 Pulse 84 06/07/22 14:01 Resp 18 06/07/22 14:01 BP 126/79 06/07/22 14:01 Pulse Ox 96 06/06/22 22:00 O2 Del Method Room Air 06/07/22 06:00 Results & Data ([facility]) Laboratory Results Laboratory Results - last 24 hr 06/04/22 20:27 U OH-Alprazolam Confrm NEGATIVE 7-Amino Clonazepam NEGATIVE Ur Nordiazepam Confirm NEGATIVE U OH-ethylflurazepam NEGATIVE U Lorazepam Cnf GC/MS NEGATIVE U Oxazepam Confm GC/MS NEGATIVE Ur Temazepam Confirm NEGATIVE U OH-Triazolam Confirm NEGATIVE U OH-Midazolam Confirm NEGATIVE Drug Screen Comment SEE NOTE Current Inpatient Medications Current Inpatient Medications: Current Inpatient Medications Acetaminophen (Acetaminophen 325 Mg Tab) 650 mg PO Q4H PRN PRN Reason: Headache or Minor Fever Stop: 07/05/22 01:07 Al Hydrox/Mg Hydrox/Simethicone (Aluminum/Magnesium Susp 30 Ml Udc) 30 ml PO Q4H PRN PRN Reason: GI Upset Stop: 07/05/22 01:07 Bismuth Subsalicylate (Bismuth Subsalicylate Liqd 236 Ml) 15 ml PO PRN PRN PRN Reason: Loose Stool Stop: 07/05/22 01:07 Hydroxyzine HCl (Hydroxyzine Hcl 25 Mg Tab) 25 mg PO Q4H PRN PRN Reason: Anxiety Stop: 07/05/22 01:07 Hydroxyzine HCl (Hydroxyzine Hcl 25 Mg Tab) 50 mg PO HSZ PRN PRN Reason: Insomnia Stop: 07/05/22 01:07 Lorazepam (Lorazepam 1 Mg Tab) 2 mg PO UD PRN; Protocol PRN Reason: EtOH Withdrawal AWSS Score 8,9 Stop: 07/05/22 20:02 Lorazepam (Lorazepam 1 Mg Tab) 3 mg PO ONCE PRN; Protocol PRN Reason: EtOH Withdrawal AWSS Score 10 & above Lorazepam (Lorazepam 1 Mg Tab) 1 mg PO UD PRN; Protocol PRN Reason: EtOH Withdrawal AWSS Score 6,7 Stop: 07/05/22 20:02 Magnesium Hydroxide (Magnesium Hydroxide Susp 30 Ml Udc) 30 ml PO DAILY PRN PRN Reason: Constipation Stop: 07/05/22 01:07 Olanzapine (Olanzapine Zydis 5 Mg Orally Dis. Tab) 5 mg PO Q6 PRN PRN Reason: ap or psychosis Stop: 07/05/22 17:59 Last Admin: 06/07/22 01:54 Dose: 5 mg Olanzapine (Olanzapine 10 Mg/2.1 Ml Sdv) 5 mg IM Q6 PRN PRN Reason: psychosis or ap, if oral form cannot be administered Stop: 07/05/22 17:59 Sodium Chloride (Sodium Chloride 0.65% Na Soln 45 Ml ([place])) 1 - 2 sprays NA PRN PRN PRN Reason: Nasal Dryness/Congestion Stop: 07/05/22 01:07 Mental Health & Subst Abuse Tx Therapist Name of Therapist: N/A Sack Sewer Machine Name of Sack Sewer Machine: N/A Post Discharge Appointments Primary Care Physician Name Of Family Doctor/PCP: N/A (4) Benzodiazepine overdose Encounter type: initial encounter Injury intent: intentional self-harm Qualified Code(s): T42.4X2A - Poisoning by benzodiazepines, intentional self- harm, initial encounter
[2022-06-07] MEDS: risperiDONE 0.5 MG TABLET PO SCH ×2 (22:57→23:28)
[2022-06-08 07:54] LABS: Chol HDL Ratio 5.5 (0-5)
--- NOTE | 2022-06-08 08:37 | Psychiatric Progress Note ---
Date of Service June 08, 2022 Impression / Recommendations Impression 26 y/o F with benzodiazepine and methamphetamine use admitted on 302 commitment after reported overdose of suspected alprazolam vs other benzodiazepine and texting friends suicide notes. Diagnostically consistent with unspecified mood disorder with differential including substance-induced vs bipolar disorder or a personality disorder such as borderline personality disorder as well as polysubstance use disorder. Currently remains in need of inpatient psychiatric hospitalization for safety and stabilization, 302 commitment expires on 06/09/2022. MNPR due to agitation while in the ED and inappropriate discussions to be around a peer regarding her substance use 06/08/2022: Mood and mental status significantly improved today, engaging with groups, eating meals more consistently. Increased insight into factors leading to suicide attempt and able to speak to reasons for living and hopefulness now. Reaching back out to her supports but declines support/family meeting. Not interested in taking psychiatric medication after discharge so risperidone discontinued per her request. Reviewed fasting glucose which was normal, fasting lipid panel notable for elevated triglycerides. Discussed dietary changes to he lp with this and offered option for PCP referral which she declines. Ongoing motivational interviewing regarding substance use. (1) Unspecified mood [affective] disorder: (2) Sedative, hypnotic or anxiolytic dependence with sedative, hypnotic or anxiolytic-induced mood disorder: (3) Other stimulant dependence with stimulant-induced mood disorder: (4) Benzodiazepine overdose: Plan 06/08/2022: Discontinue risperidone as she does not desire taking any psychiatric medications and does not plan to continue with any after discharge. 06/07/2022: Risperidone 0.5mg HS. Fasting lipid panel and glucose tomorrow AM. 06/06/2022: On AWSS, continue to monitor for signs of withdrawal. Remains on safe tray due to previous statements about plans to attempt self-harm. 06/05/2022: * The patient was admitted to the [facility]) on q15 min checks (behavioral with suicide precautions) for safety. The patient will participate in group, recreational, and milieu therapies and will be offered additional individual and family sessions as clinically appropriate. * Will monitor closely for signs of potential sedative-hypnotic withdrawal. * In the absence of any signs of sedative-hypnotic withdrawal, will avoid use of benzodiazepines. * Since behavior in the ED and history from father suggest that aggressive or disorganized behavior arising from emotional dysregulation may become a problem, will order olanzapine 5 mg ODT or 5 mg IM Q6 Hr PRN ap or psychosis Suicide Risk Level Suicide Risk Level: Moderate (q15 min suicide checks) (suicide attempt prior to admission and in ED statements of plan to self-harm if admitted, but now consistently denies SI and agrees to let nursing know if she needs more support or develops SI ) Suicide Risk Level Comments: During admission threatened to kill herself if admitted Risk Factors Assessment : Yes Do You Have Access To A Gun?: No Mental Health Diagnoses: Yes Substance Use Disorders: Yes Previous Attempt: Yes Previous Psychiatric Hospitalization: Yes Protective Factors Assessment Employed: No Interval History Identifying Information KAILYN FREEMAN is a 26-year-old F who currently lives in an apartment from which she's being evicted, has a history of "emotional dysregulation" and suspected polysubstance use, and was admitted on 06/05/22 00:30 on a 302 involuntary commitment for suicidal behavior and threats. Chief Complaint "I'm good". Review of Systems Sleep Information Total Hours of Sleep: 7 Sleep Comments: received zyprexa HS Meal Information Percent Meal Consumed - Breakfast: 50 Percent Meal Consumed - Lunch: 0 Percent Meal Consumed - Dinner: 100 Subjective Subjective Patient was seen & assessed and interval progress reviewed with treatment team nursing and social work. Initially reluctant about taking the risperidone last night, then decided she wanted to take both scheduled risperidone and requested prn zyprexa. She slept well with this combination but does feel the risperidone offered any benefit so prefers to discontinue this. Likes to be able to take the Zyprexa here to help with sleep but feels she will not need this after discharge as she sleeps well outside the hospital. Reports stable mood. Reviewed that she didn't recall events leading to hospitalization but now has better sense and recalls more after talking with her roommate. No longer upset with her roommate for calling crisis, police leading to Kailyn's hospitalization. She reviews how she and her roommates were taking more xanax "we were popping 3 of those a day because they gave such a nice high" but that they all starting taking them all together 3 at a time instead of spreading the doses out and this lead them to fall behind on rent. She recalls getting the eviction notice and due to not having any money decided she would attempt suicide. Looking back now she notes "I took it all but God wants me to be on this Earth, I'm supposed to be here". 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 Still some fatigue at times which she attributes to "the xany I'm still coming off" but overall feels "good". Eating more of her meals. She attended and participated in groups today. Denies SI. Continues to decline any outpatient PCP, therapy or psych referrals. Physical Exam Psychiatric Orientation: alert, oriented x 3 and cooperative Apperance: appropriately dressed and appropriately groomed Eye Contact: good eye contact Motor Behavior: steady gait and station and no abnormal motor movements Speech: normal rate/rhythm/volume of speech Affect: euthymic affect Mood: no depressed mood and no anxious mood Thought Process: goal directed thought process Thought Content: reality based without delusions Suicidal Thoughts: denies suicidal thoughts Homicidal Thoughts: denies homicidal thoughts Hallucinations: no auditory hallucinations and no visual hallucinations Cognition: recent memory grossly intact and remote memory grossly intact Insight: + limited insight Judgment: + limited judgement Vital Signs (Past 24 Hours) Last Vital Signs Temp 36.8 C 06/08/22 06:00 Pulse 72 06/08/22 06:00 Resp 18 06/08/22 06:00 BP 109/70 06/08/22 06:27 Pulse Ox 96 06/07/22 22:00 O2 Del Method Room Air 06/08/22 06:00 Results & Data ([facility]) Laboratory Results Laboratory Results - last 24 hr 06/04/22 06/08/22 20:27 06:41 Fasting Glucose 95 Triglycerides 287 H Cholesterol 175 LDL Cholesterol, Calc 86 VLDL Cholesterol, Calc 57 H HDL Cholesterol 32 Cholesterol/HDL Ratio 5.5 H U OH-Alprazolam Confrm NEGATIVE 7-Amino Clonazepam NEGATIVE Ur Nordiazepam Confirm NEGATIVE U OH-ethylflurazepam NEGATIVE U Lorazepam Cnf GC/MS NEGATIVE U Oxazepam Confm GC/MS NEGATIVE Ur Temazepam Confirm NEGATIVE U OH-Triazolam Confirm NEGATIVE U OH-Midazolam Confirm NEGATIVE Drug Screen Comment SEE NOTE Current Inpatient Medications Current Inpatient Medications: Current Inpatient Medications Acetaminophen (Acetaminophen 325 Mg Tab) 650 mg PO Q4H PRN PRN Reason: Headache or Minor Fever Stop: 07/05/22 01:07 Al Hydrox/Mg Hydrox/Simethicone (Aluminum/Magnesium Susp 30 Ml Udc) 30 ml PO Q4H PRN PRN Reason: GI Upset Stop: 07/05/22 01:07 Bismuth Subsalicylate (Bismuth Subsalicylate Liqd 236 Ml) 15 ml PO PRN PRN PRN Reason: Loose Stool Stop: 07/05/22 01:07 Hydroxyzine HCl (Hydroxyzine Hcl 25 Mg Tab) 25 mg PO Q4H PRN PRN Reason: Anxiety Stop: 07/05/22 01:07 Hydroxyzine HCl (Hydroxyzine Hcl 25 Mg Tab) 50 mg PO HSZ PRN PRN Reason: Insomnia Stop: 07/05/22 01:07 Lorazepam (Lorazepam 1 Mg Tab) 2 mg PO UD PRN; Protocol PRN Reason: EtOH Withdrawal AWSS Score 8,9 Stop: 07/05/22 20:02 Lorazepam (Lorazepam 1 Mg Tab) 3 mg PO ONCE PRN; Protocol PRN Reason: EtOH Withdrawal AWSS Score 10 & above Lorazepam (Lorazepam 1 Mg Tab) 1 mg PO UD PRN; Protocol PRN Reason: EtOH Withdrawal AWSS Score 6,7 Stop: 07/05/22 20:02 Magnesium Hydroxide (Magnesium Hydroxide Susp 30 Ml Udc) 30 ml PO DAILY PRN PRN Reason: Constipation Stop: 07/05/22 01:07 Olanzapine (Olanzapine Zydis 5 Mg Orally Dis. Tab) 5 mg PO Q6 PRN PRN Reason: ap or psychosis Stop: 07/05/22 17:59 Last Admin: 06/07/22 23:21 Dose: 5 mg Olanzapine (Olanzapine 10 Mg/2.1 Ml Sdv) 5 mg IM Q6 PRN PRN Reason: psychosis or ap, if oral form cannot be administered Stop: 07/05/22 17:59 Risperidone (Risperidone 0.5 Mg Tablet) 0.5 mg PO HS DARRELL Stop: 07/07/22 21:59 Last Admin: 06/07/22 23:28 Dose: 0.5 mg Sodium Chloride (Sodium Chloride 0.65% Na Soln 45 Ml ([place])) 1 - 2 sprays NA PRN PRN PRN Reason: Nasal Dryness/Congestion Stop: 04/16/23 01:07 Mental Health & Subst Abuse Tx Therapist Name of Therapist: N/A Returned Goods Receiving Clerk Name of Returned Goods Receiving Clerk: N/A Post Discharge Appointments Primary Care Physician Name Of Family Doctor/PCP: N/A (4) Benzodiazepine overdose Encounter type: initial encounter Injury intent: intentional self-harm Qualified Code(s): T42.4X2A - Poisoning by benzodiazepines, intentional self- harm, initial encounter
[2022-06-08] MEDS ORDERED: OLANZapine ZYDIS 5 MG ORALLY DIS. TAB PO PRN (15:27)
--- NOTE | 2022-06-09 09:12 | Discharge Summary ---
Date of Service June 09, 2022 History of Present Illness As part of a thorough review of the available medical records, I have read and confirmed the following note by the ED psychiatric case investigator: "Patient arrives on a Box A petition by : "I went to wake Kailyn yesterday morning - she appeared under the influence. Was staggering and acting abnormal. We are facing eviction in 3 days, she made comments of being a disappointment to her parents. Another roommate observed her taking a knife to her bathroom. I left for work and checked on her when I returned last night, she would not respond to me verbally. She sent me and other roommates "I love you" messages (last night). She left the apartment to avoid medical attention. She made statements to me that she wished she had a gun to use against herself. I witnessed her ingest 7 Xanax pills today and tried to stop her. She admitted to taking a total of 30 Xanax pills between yesterday and today." "Kailyn admits to ingesting 22-30 Xanax pills she bought online from a man overseas in [place]. She states these are illegal pills and are 3.5mg each. She relays a history of anxiety and depression her whole life and does not receive treatment for it. She believes that healthcare workers are paid to impose medications on people and refuses any and all medication. In regards to therapy, she states, "fuck therapy". She also states, "I don't want treatment, I will avoid it at all costs. Hopefully my liver is fucked up so I can just ". Kailyn admits to suicidal thoughts at current. She states that she will kill herself if she is transferred to an inpatient psychiatric facility by finding anything she can to slit her wrists. Kailyn states she was in foster care from age [age] when she was adopted. She states her adoptive parents didn't know what they were getting into and she was placed several times at inpatient hospitals as a child. She denies any inpatient history past age 15. Roommate/petitioner provides additional info that Kailyn recently lost custody of her two children." "Received call from Kailyn's adoptive father, Tony ([phone]). Tony understood that I could not confirm or deny that patient is here or offer any information in regards to her stay here thus far. Tony states that Kailyn's roommate reached out to him and he just wanted to provide some background information. He states that Kailyn had always been a strong willed child from the time they adopted her at age 4, but her emotional dysregulation worsened at puberty. She had inpatient stays at [facility] as an adolescent following two episodes of SIB. Tony shares that Kailyn sent him and his Reyna a lengthy text message last night blaming them for not parenting her correctly and telling them not to come to her . Tony and his were not concerned as they receive messages like this from Kailyn periodically." "Kailyn has no service providers and is dealing with several stressors in her life right now. She is facing eviction in three days. She lost custody of her two young sons a few months ago and hasn't seen them in approximately 1.5 months. She has prior inpatient psychiatric treatment as an adolescent but no treatment as an adult. She has past history of self injurious behavior by cutting. Unclear when last cutting incident was. She messaged several people by text message last night saying her goodbyes, including telling her adoptive parents not to attend her . Kailyn is very resistant to [facility] health service providers and has experienced a lot of trauma being in the system as a child." Her urine toxicology screen was positive for benzodiazepine metabolites but more detailed testing for metabolites of specific benzodiazepines marketed in the [place] is pending. As far as I can determine, alprazolam is not legally available in a 3.5 mg size anywhere. Since we don't have access to any of the tablets pt took, identifying the drug may never be possible. My experience with patients ordering benzodiazepines over the internet leads me to believe that in most cases these are novel benzodiazepines mislabeled as "Xanax" or "Kalma". The most common I've seen have been triazolobenzodiazepines (a group with includes alprazolam) because these are often favored by addicts over other types. Commonly- encountered "mobile ui/ux designer" triazolobenzodiazepines include bromazolam, clonazolam, flualprazolam, and flubromazolam. These are highly-potent and have not been studied in much depth, but all bind to type-A HOPE receptors. They have unpredictable and often very severe withdrawal syndromes. On approach today, pt is lying prone on her bed, her face against the mattress. She does not respond to numerous attempts to wake her up but eventually flutters her eyelids open. She attempts to sit up but falls over twice then returns to her prone position. During this, she vocalized but did not form any words that I could detect. Physical Exam Vital Signs (Past 24 Hours) Last Vital Signs Temp 36.6 C 06/09/22 06:38 Pulse 109 H 06/09/22 06:38 Resp 16 06/09/22 06:38 BP 121/90 06/09/22 06:38 Pulse Ox 96 06/07/22 22:00 O2 Del Method Room Air 06/08/22 06:00 See admission H&P and DOD summary. Principal Diagnosis Anxiolytic-induced mood disorder Psychiatric Data See daily stay summary. In short, patient was engaged with the social/therapeutic milieu of the unit, safety was maintained and the patient was cooperative with care. Medication changes included brief use of Zyprexa and risperidone which she tolerated well. Psychiatric medications were discontinued as she did not want to take any medications after discharge and her mood stabilized. Extensive time was spent on motivational interviewing regarding substance use, she remains precontemplative about this. She declined any outpatient referrals for PCP, psychiatry, therapy or dual diagnosis substance use treatment. She declined having a support session but did talk with her close friend and her dad on the phone throughout her stay. A safety plan was completed prior to discharge. She actively participated in safety planning and in discussions about ways to seek support and recognizing warning signs and utilizing coping skills. Reviewed importance of seeking emergency care should SI intensify, worsen or should they feel unsafe in the future which they agree to do. 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 Day of Discharge Assessment Today the patient voices readiness for discharge. They note improvement in mood and anxiety. They deny thoughts of harm to self or others. Thoughts are organized and they are clinically improved from admission. There is no evidence of psychosis. They improved in the hospital with support and medication adjustments. They agree to take medications as prescribed and keep follow-up appointments. At the time of the discharge they are deemed to be stable and appropriate for outpatient level of care. They are not deemed to be at imminent risk of harm to self or others. They are aware of emergency and crisis services. Knows to call 911 or go to nearest emergency care center if in a crisis which cannot be handled as an outpatient. Transition of Care Transition Of Care Record: was reviewed with the patient Advance Directives Advance Directives Information Provided: Yes Advance Directives: No Mental Health Advance Directive: No Advance Directives on File: No Living Will: No Power of Head Of Housekeeping: No Advance Directives Reason:: Declines as Mental Health Visit. Suicide Risk Level Suicide Risk Level Comments: Acute risk is low given improvement in mood and denial of SI, lack of access to lethal means, hopefulness. Chronic risk is moderate to high given multiple non- modifiable risk factors; substance use in precontemplative stage of change, declining any outpatient resources, periods of impulsivity, prior attempt, prior psychiatric hospitalizations, poor social support, childhood trauma but also with protective factors including close friends, sense of responsibility to her dog and friends, positive coping skills, positive problem solving, capacity to establish therapeutic alliance. Counseled on ways to reduce acute and chronic risk including reducing/avoiding substance use, establishing with outpatient providers, using safety plan if needed, utilizing supports, and using coping skills. Modifiable risk factors of SI, mood changes and depression were addressed during hospitalization through development of new coping skills, famil y meeting, safety planning, and medication adjustments. Risk Factors Assessment Male: No : Yes Do You Have Access To A Gun?: No (reviewed that no access from friends or family, does not own any weapons) Health Problems: No Mental Health Diagnoses: Yes Substance Use Disorders: Yes Previous Attempt: Yes Family History of Suicide: No Previous Psychiatric Hospitalization: Yes Hopelessness: No Protective Factors Assessment Employed: No Stable Relationships: Yes Discharge Data Lab Results 06/04/22 06/04/22 06/04/22 20:27 20:27 20:27 WBC RBC Hgb Hct MCV MCH MCHC RDW Std Deviation RDW Coeff of Sherrie Plt Count MPV Immature Gran % (Auto) Neut % (Auto) Lymph % (Auto) [place] % (Auto) Eos % (Auto) Baso % (Auto) Neut # (Auto) Lymph # (Auto) [place] # (Auto) Eos # (Auto) Baso # (Auto) Immature Gran # (Auto) Sodium Potassium Chloride Carbon Dioxide Anion Gap BUN Creatinine Est Cr Clr Drug Dosing Est GFR ( Amer) Est GFR (Non-Af Amer) BUN/Creatinine Ratio Glucose Fasting Glucose Calcium Magnesium Total Bilirubin AST ALT Alkaline Phosphatase Total Protein Albumin Globulin Albumin/Globulin Ratio Triglycerides Cholesterol LDL Cholesterol, Calc VLDL Cholesterol, Calc HDL Cholesterol Cholesterol/HDL Ratio Urine Color Yellow Urine Appearance Turbid A Urine pH 5.5 Ur Specific [place] 1.017 Urine Protein Negative Urine Glucose (UA) Negative Urine Ketones Negative Urine Blood 2+ H Urine Nitrite Negative Urine Bilirubin Negative Urine Urobilinogen Negative Ur Leukocyte Esterase 2+ H Urine WBC (Auto) >30 H Urine RBC (Auto) 0-4 U Hyaline Cast (Auto) 0 U Epithel Cells (Auto) >30 H Urine Bacteria (Auto) 2+ H Urine Yeast Budding A Urine Test Negative Salicylates Urine Opiates Screen Neg Ur Methadone, Qual Neg Acetaminophen Urine Barbiturates Neg Ur Phencyclidine (PCP) Neg U Amphetamin/Meth Scrn Neg MDMA (Ecstasy) Screen Neg U OH-Alprazolam Confrm U Benzodiazepines Scrn Pos H 7-Amino Clonazepam Ur Nordiazepam Confirm U OH-ethylflurazepam U Lorazepam Cnf GC/MS U Oxazepam Confm GC/MS Ur Temazepam Confirm U OH-Triazolam Confirm U OH-Midazolam Confirm Ur Cocaine Metabolite Neg U Marijuana (THC) Screen Neg Drug Screen Comment Ethyl Alcohol mg/dL SARS-CoV-2, RNA, NAAT 06/04/22 06/04/22 06/04/22 20:27 20:47 20:47 WBC 6.73 RBC 5.19 Hgb 14.2 Hct 42.8 MCV 82.5 MCH 27.4 MCHC 33.2 RDW Std Deviation 37.9 RDW Coeff of Sherrie 12.7 Plt Count 327 MPV 9.4 Immature Gran % (Auto) 0.3 Neut % (Auto) 70.6 Lymph % (Auto) 21.7 [place] % (Auto) 6.1 Eos % (Auto) 0.9 Baso % (Auto) 0.4 Neut # (Auto) 4.75 Lymph # (Auto) 1.46 [place] # (Auto) 0.41 Eos # (Auto) 0.06 Baso # (Auto) 0.03 Immature Gran # (Auto) 0.02 Sodium 141 Potassium 3.7 Chloride 108 H Carbon Dioxide 28 Anion Gap 5 BUN 11 Creatinine 0.75 Est Cr Clr Drug Dosing 129.9 Est GFR ( Amer) 126.6 Est GFR (Non-Af Amer) 109.2 BUN/Creatinine Ratio 14.7 Glucose 107 H Fasting Glucose Calcium 9.5 Magnesium 2.1 Total Bilirubin 0.3 AST 8 L ALT 8 Alkaline Phosphatase 74 Total Protein 7.7 Albumin 4.6 Globulin 3.1 Albumin/Globulin Ratio 1.5 Triglycerides Cholesterol LDL Cholesterol, Calc VLDL Cholesterol, Calc HDL Cholesterol Cholesterol/HDL Ratio Urine Color Urine Appearance Urine pH Ur Specific [place] Urine Protein Urine Glucose (UA) Urine Ketones Urine Blood Urine Nitrite Urine Bilirubin Urine Urobilinogen Ur Leukocyte Esterase Urine WBC (Auto) Urine RBC (Auto) U Hyaline Cast (Auto) U Epithel Cells (Auto) Urine Bacteria (Auto) Urine Yeast Urine Test Salicylates Urine Opiates Screen Ur Methadone, Qual Acetaminophen Urine Barbiturates Ur Phencyclidine (PCP) U Amphetamin/Meth Scrn MDMA (Ecstasy) Screen U OH-Alprazolam Confrm NEGATIVE U Benzodiazepines Scrn 7-Amino Clonazepam NEGATIVE Ur Nordiazepam Confirm NEGATIVE U OH-ethylflurazepam NEGATIVE U Lorazepam Cnf GC/MS NEGATIVE U Oxazepam Confm GC/MS NEGATIVE Ur Temazepam Confirm NEGATIVE U OH-Triazolam Confirm NEGATIVE U OH-Midazolam Confirm NEGATIVE Ur Cocaine Metabolite U Marijuana (THC) Screen Drug Screen Comment SEE NOTE Ethyl Alcohol mg/dL SARS-CoV-2, RNA, NAAT 06/04/22 06/04/22 06/04/22 20:47 20:47 20:47 WBC RBC Hgb Hct MCV MCH MCHC RDW Std Deviation RDW Coeff of Sherrie Plt Count MPV Immature Gran % (Auto) Neut % (Auto) Lymph % (Auto) [place] % (Auto) Eos % (Auto) Baso % (Auto) Neut # (Auto) Lymph # (Auto) [place] # (Auto) Eos # (Auto) Baso # (Auto) Immature Gran # (Auto) Sodium Potassium Chloride Carbon Dioxide Anion Gap BUN Creatinine Est Cr Clr Drug Dosing Est GFR ( Amer) Est GFR (Non-Af Amer) BUN/Creatinine Ratio Glucose Fasting Glucose Calcium Magnesium Total Bilirubin AST ALT Alkaline Phosphatase Total Protein Albumin Globulin Albumin/Globulin Ratio Triglycerides Cholesterol LDL Cholesterol, Calc VLDL Cholesterol, Calc HDL Cholesterol Cholesterol/HDL Ratio Urine Color Urine Appearance Urine pH Ur Specific [place] Urine Protein Urine Glucose (UA) Urine Ketones Urine Blood Urine Nitrite Urine Bilirubin Urine Urobilinogen Ur Leukocyte Esterase Urine WBC (Auto) Urine RBC (Auto) U Hyaline Cast (Auto) U Epithel Cells (Auto) Urine Bacteria (Auto) Urine Yeast Urine Test Salicylates < 3.0 L Urine Opiates Screen Ur Methadone, Qual Acetaminophen < 3 L Urine Barbiturates Ur Phencyclidine (PCP) U Amphetamin/Meth Scrn MDMA (Ecstasy) Screen U OH-Alprazolam Confrm U Benzodiazepines Scrn 7-Amino Clonazepam Ur Nordiazepam Confirm U OH-ethylflurazepam U Lorazepam Cnf GC/MS U Oxazepam Confm GC/MS Ur Temazepam Confirm U OH-Triazolam Confirm U OH-Midazolam Confirm Ur Cocaine Metabolite U Marijuana (THC) Screen Drug Screen Comment Ethyl Alcohol mg/dL < 10.0 SARS-CoV-2, RNA, NAAT NEGATIVE 06/08/22 06:41 WBC RBC Hgb Hct MCV MCH MCHC RDW Std Deviation RDW Coeff of Sherrie Plt Count MPV Immature Gran % (Auto) Neut % (Auto) Lymph % (Auto) [place] % (Auto) Eos % (Auto) Baso % (Auto) Neut # (Auto) Lymph # (Auto) [place] # (Auto) Eos # (Auto) Baso # (Auto) Immature Gran # (Auto) Sodium Potassium Chloride Carbon Dioxide Anion Gap BUN Creatinine Est Cr Clr Drug Dosing Est GFR ( Amer) Est GFR (Non-Af Amer) BUN/Creatinine Ratio Glucose Fasting Glucose 95 Calcium Magnesium Total Bilirubin AST ALT Alkaline Phosphatase Total Protein Albumin Globulin Albumin/Globulin Ratio Triglycerides 287 H Cholesterol 175 LDL Cholesterol, Calc 86 VLDL Cholesterol, Calc 57 H HDL Cholesterol 32 Cholesterol/HDL Ratio 5.5 H Urine Color Urine Appearance Urine pH Ur Specific [place] Urine Protein Urine Glucose (UA) Urine Ketones Urine Blood Urine Nitrite Urine Bilirubin Urine Urobilinogen Ur Leukocyte Esterase Urine WBC (Auto) Urine RBC (Auto) U Hyaline Cast (Auto) U Epithel Cells (Auto) Urine Bacteria (Auto) Urine Yeast Urine Test Salicylates Urine Opiates Screen Ur Methadone, Qual Acetaminophen Urine Barbiturates Ur Phencyclidine (PCP) U Amphetamin/Meth Scrn MDMA (Ecstasy) Screen U OH-Alprazolam Confrm U Benzodiazepines Scrn 7-Amino Clonazepam Ur Nordiazepam Confirm U OH-ethylflurazepam U Lorazepam Cnf GC/MS U Oxazepam Confm GC/MS Ur Temazepam Confirm U OH-Triazolam Confirm U OH-Midazolam Confirm Ur Cocaine Metabolite U Marijuana (THC) Screen Drug Screen Comment Ethyl Alcohol mg/dL SARS-CoV-2, RNA, NAAT Hospital Course (1) Unspecified mood [affective] disorder: (2) Sedative, hypnotic or anxiolytic dependence with sedative, hypnotic or anxiolytic-induced mood disorder: (3) Other stimulant dependence with stimulant-induced mood disorder: (4) Benzodiazepine overdose: Plan 06/08/2022: Discontinue risperidone as she does not desire taking any psychiatric medications and does not plan to continue with any after discharge. 06/07/2022: Risperidone 0.5mg HS. Fasting lipid panel and glucose tomorrow AM. 06/06/2022: On AWSS, continue to monitor for signs of withdrawal. Remains on safe tray due to previous statements about plans to attempt self-harm. 06/05/2022: * The patient was admitted to the [facility] ([facility] mental health unit) on q15 min checks (behavioral with suicide precautions) for safety. The patient will participate in group, recreational, and milieu therapies and will be offered additional individual and family sessions as clinically appropriate. * Will monitor closely for signs of potential sedative-hypnotic withdrawal. * In the absence of any signs of sedative-hypnotic withdrawal, will avoid use of benzodiazepines. * Since behavior in the ED and history from father suggest that aggressive or disorganized behavior arising from emotional dysregulation may become a problem, will order olanzapine 5 mg ODT or 5 mg IM Q6 Hr PRN ap or psychosis Mental Health & Subst Abuse Tx Therapist Name of Therapist: N/A Utilities Ground Worker Name of Utilities Ground Worker: N/A Post Discharge Appointments Primary Care Physician Name Of Family Doctor/PCP: N/A Discharge Plan Discharge Items Patient Disposition: Home - Self-Care Reason For Visit: MDD Discharge Diagnosis: Anxiolytic-induced mood disorder Activity: Resume your previous activity Non-emergency contact: Primary Care Provider Call non-emergency contact if: you have any medication questions and your symptoms worsen Follow-up/Referrals: PCP,NO [Primary Care Provider] - Diet: Regular Addtl Attending Provider Instructions: SPECIAL CARE INSTRUCTIONS: 1. Follow through with your scheduled aftercare appointments. If unable to keep an appointment, please call to reschedule. 2. Take your medication only as prescribed. Medication should not be changed or stopped without the approval of your doctor. In the event of worsening symptoms or concerns about side effects, contact your doctor immediately. 3. Utilize new healthy coping skills, anger management skills, and stress management skills learned during your hospitalization. Journal feelings and process them with a support person. Identify stressors or situations that may result in relapse, deterioration or inappropriate behaviors and develop a plan to deal with those issues. 4. If your coping skills are ineffective and you are in crisis, contact your outpatient providers for direction. If unable to reach your providers, please call the [facility] CRISIS LINE AT , go to the [facility] walk-in center at [address], [address], [place], or go to the closest Emergency Room. 5. Avoid alcohol and un-prescribed drugs. 6. You have been provided with the Mental Health Advance Directives Pamphlet for your review. 7. Your condition is stable for discharge to outpatient level of care, but recovery is an ongoing process. Ifthoughts to harm yourself or others return, follow the safety plan developed during your stay. Planning for a safe return home includes securing weapons. Our treatment team recommends weaponsbe removed from the home until your outpatient provider reassesses your progress. In rare cases where the items themselvescannot be removed, guns and ammunitionshould be secured separatelyand keys stored by a reliable personoutside of the home. If you were admitted on an involuntary commitment, the police or other legal authorities may be involved in this process. AFTERCARE APPOINTMENTS: * Please call your insurance company prior to your scheduled appointment to confirm your aftercare providers are covered. Take your insurance information to your appointments. WHO TO CALL AND WHEN: Medical Emergencies: For questions or emergencies related to your hospital stay, please contact the Inpatient Behavioral Health Unit at [phone]. [facility] [place] is on-call 12/10 for the Behavioral Health Unit for emergencies At any time you feel your situation is an emergency, you may also call 911 immediately. Pending Studies at Discharge: No Stand-Alone Forms: My [facility] Medications and DC Order Prescriptions: No Action No Known Home Medications Discharge Orders: Discharge Order (Routine); Ordered 06/09/22 Ordered By: Deisy Ignacio Admission Data Admit Date/Time: 06/05/22 00:30 Attending Provider: Deisy Ignacio Admit Provider: Juve Jordan Primary Care Provider: PCP,NO Other Providers: Juve Jordan Other Interventions: Discharge Summary Assessment (RN) Last Done: 06/09/22 09:10 PSY Interdisciplinary Discharge Planning Last Done: 06/09/22 09:52 Coding Level of Care Code 65724 D/C day mgmt > 30 min Diagnoses Unspecified mood [affective] disorder F39 Sedative, hypnotic or anxiolytic dependence with sedative, hypnotic or anxiolytic-induced mood disorder F13.24 Other stimulant dependence with stimulant-induced mood disorder F15.24 Benzodiazepine overdose T42.4X2A Encounter type: initial encounter Injury intent: intentional self-harm Time Spent (min) 35
== END 2022-06-09 11:10 | disposition home or self-care (01) | DRG 897 ==
LOC: ED 20:21 → 3S 06-05 00:30 → SUATTDRO 06-05 00:30 → 3S 06-05 00:43